=== PATIENT | male | born 1990 ===

== ENCOUNTER 2019-11-12 20:09 | Emergency (ER) | payer SELFPAY ==
[~2019-11-12] VITALS: Ht 175.3 cm; Wt 77.1 kg
--- NOTE | 2019-11-12 20:10 | NUR ---
ED Nurse Note: Pt brought into the ED. 4mg Narcan was given en route. Pt is drowsy and weak. Pt stated some pills were taken with alcohol too. 

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
--- NOTE | 2019-11-12 20:15 | NUR ---
ED Nurse Note: Blood initial is done. Taken to CT.
[2019-11-12 20:23] VITALS: BP 121/70
[2019-11-12 20:28] LABS: BASOPHILS % (AUTO) 0.9 % (0.0-2.0); EOSINOPHILS % (AUTO) 1.5 % (0.0-3.0); HEMATOCRIT 48.1 % (42.0-52.0); HEMOGLOBIN 15.2 G/DL (14.2-18.0); MEAN CORPUSCULAR VOLUME 94 FL (80-99); MONOCYTES % (AUTO) 4.6 % (1.0-10.0); PLATELET COUNT 319 K/UL (150-450); RED BLOOD COUNT 5.09 M/UL (4.70-6.10); RED CELL DISTRIBUTION WIDTH 12.6 % (11.6-14.8); WHITE BLOOD COUNT 16.8 K/UL (4.8-10.8)
--- NOTE | 2019-11-12 20:30 | NUR ---
Note undone in EDM - 11/12/19 at 2300 by [email or web address] ED Nurse Note: Pt brought into the ED. 4mg Narcan was given en route. Pt is drowsy and weak. Pt stated some pills were taken with alcohol too. 

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
--- NOTE | 2019-11-12 20:45 | Diagnostic Imaging Report ---
EXAM: XR Chest, 1 View CLINICAL HISTORY: AMS TECHNIQUE: Frontal view of the chest. COMPARISON: No relevant prior studies available. FINDINGS: Study limited to a single portable AP chest radiograph. Patient is mild to moderately rotated on the study. No significant cardiac enlargement. No identifiable focal consolidation, pneumothorax or pleural fluid collections. Recommend upright PA and lateral views of the chest when clinically feasible.
[2019-11-12 20:46] LABS: ANION GAP 13 mmol/L (5-15); BLOOD UREA NITROGEN 8 mg/dL (7-18); CALCIUM 9.2 MG/DL (8.5-10.1); CARBON DIOXIDE 27 MMOL/L (21-32); CHLORIDE 103 MMOL/L (98-107); CREATININE 1.4 MG/DL (0.55-1.30); POTASSIUM 3.8 MMOL/L (3.5-5.1); SODIUM 143 MMOL/L (136-145)
[2019-11-12 20:50] LABS: ALANINE AMINOTRANSFERASE 26 U/L (12-78); ALBUMIN 4.1 G/DL (3.4-5.0); ALBUMIN/GLOBULIN RATIO 1.1 (1.0-2.7); ALKALINE PHOSPHATASE 98 U/L (46-116); ASPARTATE AMINO TRANSFERASE 17 U/L (15-37); BILIRUBIN,TOTAL 0.2 MG/DL (0.2-1.0); CREATINE KINASE 162 U/L (26-308)
--- NOTE | 2019-11-12 21:00 | NUR ---
ED Nurse Note: Pt is asleep and VVS. Continue to monitor.
[2019-11-12 23:00] VITALS: BP 156/83
--- NOTE | 2019-11-12 23:00 | NUR ---
ER DISCHARGE NOTE: Patient is cleared to be discharged per ERMD, pt is aox4, on room air, with stable vital signs. pt was given dc and prescription instructions, pt was able to verbalize understanding, pt id band and iv site removed without complications. pt is able to ambulate with steady gait. pt took all belongings.
== END 2019-11-12 23:00 | disposition home or self-care (01) ==
LOC: EDBD 20:09 → EMR 20:10
DX: R41.82 Altered mental status, unspecified (principal); R00.0 Tachycardia, unspecified
CPT/HCPCS: 36415; 70450; 71045; 80053; 80307; 82550; 83735; 85025; 93005; 96360; 96361; 99284; G0480